=== PATIENT | male | born 2005 | race Caucasian/White ===

== ENCOUNTER 2024-03-09 18:44 | Emergency (ER) | payer BC, SELFPAY ==
[2024-03-09 18:52] VITALS: BP 139/68; PULSE 75; TEMP 37.1; O2SAT 100; BMI 19.2
--- NOTE | 2024-03-09 19:27 | ED_ITS ---
HPI - Male Genitourinary General Chief complaint: Urogenital-Male Stated complaint: GENITAL DISCOMFORT Time Seen by Provider: 03/09/24 19:19 Source: patient and family Mode of arrival: walk-in Limitations: no limitations History of Present Illness HPI Narrative: patient presents complaining of testicle pain on and off since november. First noticed after intercourse. Now will experience pain more often even without intercourse. Now presents complaining of ongoing left testicle pain for the past week. No injury. Was seen at health clinic and mother states he was checked for STD and test were neg. Denies dysuria, hematuria or penile discharge. Does have back pain on and off. Describes it as tightening that has been on and off for past year Related Data Home Medications ?Medication ?Instructions ?Recorded ?Confirmed No Known Home Medications 03/09/24 03/09/24 Allergies Allergy/AdvReac Type Severity Reaction Status Date / Time codeine AdvReac Irritable Verified 03/09/24 18:52 Review of Systems ROS Status of ROS 10 or more systems reviewed and unremark able except as noted in history and below PFSH PFSH Social History Little interest or pleasure in doing things: not at all Feeling down, depressed, or hopeless: not at all Exam Constitutional Vital Signs, click to edit/add: Last Vital Signs Temp 98.7 F 03/09/24 18:52 Pulse 62 03/09/24 19:58 Resp 18 03/09/24 19:58 BP 127/80 03/09/24 20:30 Pulse Ox 97 03/09/24 20:30 O2 Del Method Room Air 03/09/24 18:52 Common normals: no apparent distress, average body habitus, oriented x3, no limitations, healthy appearing, alert and well nourished [facility] Common normals: normocephalic and head/scalp atraumatic Eye Common normals: PERRL, EOMs intact bilaterally and conjunctivae normal Respiratory Common normals: normal respiratory effort, no retractions, no use of accessory muscles and clear to auscultation bilaterally Cardio Common normals: regular rate, regular rhythm, S1 normal heart sound and S2 normal heart sound GI Common normals: Normal to inspection, nondistended, normoactive bowel sounds present, soft to palpation and non-tender Penis: normal penis and uncircumcised Scrotum: testes descended bilaterally Testes: testicular lie normal Other: testes nontender and not enlarged or swollen Extremity Common normals: normal to inspection and full ROM Neuro Common normals: oriented x3, CN's II-XII intact bilaterally, moves all e xtremities and no focal motor deficits Psych Appearance: grossly normal Course Vital Signs Vital signs: Vital Signs Temperature 98.7 F 03/09/24 18:52 Pulse Rate 75 03/09/24 18:52 Respiratory Rate 14 03/09/24 18:52 Blood Pressure 139/68 03/09/24 18:52 Pulse Oximetry 100 03/09/24 18:52 Oxygen Delivery Method Room Air 03/09/24 18:52 Temperature 98.7 F 03/09/24 18:52 Pulse Rate 62 03/09/24 19:58 Respiratory Rate 18 03/09/24 19:58 Blood Pressure 127/80 03/09/24 20:30 Pulse Oximetry 97 03/09/24 20:30 Oxygen Delivery Method Room Air 03/09/24 18:52 MDM - Male Genitourinary MDM Narrative Medical decision making narrative: patient presents complaining of testicle pain on and off since november. Constant discomfort of left testes for past week. No injury. exam of testes normal. Not swollen. No atrophy and nontender. labs including UA unremarkable. Patient and mother informed it is not clear what is causing the pain. No clinical evidence of Torsion or epididymitis. Recommend eval by Urology. Will also have him scheduled for ultrasound 03/11/24 as part of workup Lab Data Labs: Lab Results 03/09/24 03/09/24 Range/Units 19:10 19:50 WBC 9.4 (4.0-11.0) 10^3/uL RBC 4.85 (4.70-6.10) 10^6/uL Hgb 14.6 (14.0-18.0) g/dL Hct 41.9 L (42.0-54.0) % MCV 86.4 (80.0-94.0) fL MCH 30.1 (25.9-34.0) pg MCHC 34.8 (29.9-35.2) g/dL RDW 11.5 (11.0-15.0) % Plt Count 246 (150-450) 10^3/uL MPV 8.9 L (9.5-13.5) fL Neut % (Auto) 61.9 (43.0-75.0) % Lymph % (Auto) 26.4 (20.5-60.0) % [place] % (Auto) 8.2 (1.7-12.0) % Eos % (Auto) 1.6 (0.9-7.0) % Baso % (Auto) 0.5 (0.2-2.0) % Neut # (Auto) 5.8 (1.4-6.5) 10^3/uL Lymph # (Auto) 2.5 (1.2-3.8) 10^3/uL [place] # (Auto) 0.8 (0.3-0.8) 10^3/uL Eos # (Auto) 0.2 (0.0-0.7) 10^3/uL Baso # (Auto) 0.1 (0.0-0.1) 10^3/uL Abs Immat Gran (auto) 0.13 H (0.00-0.03) 10^3/uL Imm/Tot Granulo (auto) 1.4 H (0.0-0.5) % Sodium 141 (136-145) mmol/L Potassium 3.8 (3.5-5.1) mmol/L Chloride 105 (98-107) mmol/L Carbon Dioxide 27.7 (21.0-32.0) mmol/L Anion Gap 12.1 BUN 23.0 H (7.0-18.0) mg/dL Creatinine 1.20 (0.70-1.30) mg/dL Est GFR ( Amer) >60 (>=60 mL/min/1.73m^2) Est GFR (Non-Af Amer) >60 (>=60 mL/min/1.73m^2) BUN/Creatinine Ratio 19.2 Glucose 95 (74-106) mg/dL Calcium 9.2 (8.5-10.1) mg/dL Urine Color Lt. yellow (YELLOW) Urine Clarity Clear (CLEAR) Urine pH 7.0 (5.0-9.0) Ur Specific [place] 1.025 (1.005-1.025) Urine Protein Negative (NEG/TRACE) mg/dL Urine Glucose (UA) Negative (NEGATIVE) mg/dL Urine Ketones Trace A (NEGATIVE) mg/dL Urine Occult Blood Negative (NEGATIVE) Urine Nitrite Negative (NEGATIVE) Urine Bilirubin Negative (NEGATIVE) Urine Urobilinogen 1.0 (0.2-1.0) EU/dL Ur Leukocyte Esterase Negative (NEGATIVE) Discharge Plan Discharge Chief Complaint: Urogenital-Male Clinical Impression: Left testicular pain Patient Disposition: Home, Self-Care Prescriptions / Home Meds: No Action No Known Home Medications Print Language: [place]an Instructions: Testicle Pain (ED) Additional Instructions: return for Ultrasound and contact Dr Lerma [facility] Monday for follow up next week Referrals: TANO GLORIA [Primary Care Provider] - 1 week Discharge Date/Time: 03/09/24 20:55
[2024-03-09 19:35] LABS: Bilirubin Urine NEGATIVE (NEGATIVE); Blood Urine NEGATIVE (NEGATIVE); Clarity Urine CLEAR (CLEAR); Color Urine LT. YELLOW (YELLOW); Glucose Urine UA NEGATIVE (NEGATIVE); Ketones Urine TRACE mg/dL (NEGATIVE); Leukocyte Esterase Urine NEGATIVE (NEGATIVE); Nitrite Urine NEGATIVE (NEGATIVE); Protein Urine NEGATIVE (NEG/TRACE); Specific Gravity Urine 1.025 (1.005-1.025)
[2024-03-09 19:36] LABS: Urine Microscopic Indicated NO
[2024-03-09 19:58] VITALS: BP 129/70; PULSE 62; O2SAT 99
[2024-03-09 20:00] VITALS: BP 129/73; O2SAT 99
[2024-03-09] MEDS: IBUPROFEN 400 MG TABLET 800 MG PO (20:00)
[2024-03-09 20:02] LABS: Basophils Absolute Auto 0.1 10^3/uL (0.0-0.1); Basophils Percent Auto 0.5 % (0.2-2.0); Eosinophils Absolute Auto 0.2 10^3/uL (0.0-0.7); Eosinophils Percent Auto 1.6 % (0.9-7.0); Hematocrit 41.9 % (42.0-54.0); Hemoglobin 14.6 g/dL (14.0-18.0); Immature Granulocytes Abs Auto 0.13 10^3/uL (0.00-0.03); Immature Granulocytes Pct Auto 1.4 % (0.0-0.5); Lymphocytes Absolute Auto 2.5 10^3/uL (1.2-3.8); Lymphocytes Percent Auto 26.4 % (20.5-60.0); Mean Corpuscular HGB Conc 34.8 g/dL (29.9-35.2); Mean Corpuscular Hemoglobin 30.1 pg (25.9-34.0); Mean Corpuscular Volume 86.4 fL (80.0-94.0); Mean Platelet Volume 8.9 fL (9.5-13.5); Monocytes Absolute Auto 0.8 10^3/uL (0.3-0.8); Monocytes Percent Auto 8.2 % (1.7-12.0); Neutrophils Absolute Auto 5.8 10^3/uL (1.4-6.5); Neutrophils Percent Auto 61.9 % (43.0-75.0); Platelet Count 246 10^3/uL (150-450); Red Blood Count 4.85 10^6/uL (4.70-6.10); Red Cell Distribution Width 11.5 % (11.0-15.0); White Blood Count 9.4 10^3/uL (4.0-11.0)
[2024-03-09 20:08] LABS: Anion Gap 12.1; BUN Creatinine Ratio 19.2; Calcium 9.2 mg/dL (8.5-10.1); Carbon Dioxide 27.7 mmol/L (21.0-32.0); Chloride 105 mmol/L (98-107); Estimated GFR (African America >60 (>=60 mL/min/1.73m^2); Estimated GFR (Non-African Ame >60 (>=60 mL/min/1.73m^2); Glucose 95 mg/dL (74-106); Potassium 3.8 mmol/L (3.5-5.1); Sodium 141 mmol/L (136-145)
[2024-03-09 20:10] VITALS: O2SAT 97
--- NOTE | 2024-03-09 20:13 | PC.NURSE ---
patient complains of left testicle pain onset 11/2023, this patient rates his pain at 5/10 and dull ache, patient denies any injury, falls, trauma to cause this pain. denies any pain or discharge during urination. this patient also complains of mid lower back at times
[2024-03-09 20:20] VITALS: O2SAT 98
[2024-03-09 20:30] VITALS: BP 127/80; O2SAT 97
--- NOTE | 2024-03-09 20:54 | PC.NURSE ---
i gave verbal and paper discharge orders along with 1 Rx(ultrasound) to this patient and he voices yes to understanding. at time of discharge this patient shows no signs of distress
== END 2024-03-09 20:55 | disposition home or self-care (01) ==
PROVIDERS: Emergency Provider Internal Medicine; PCP Family Medicine
DX: N50.812 Left testicular pain (principal)
CPT/HCPCS: 36415; 80048; 81003; 85025; 99283

== ENCOUNTER 2024-03-11 16:08 | Outpatient (OUT) | payer BC, SELFPAY ==
--- NOTE | 2024-03-11 16:10 | US_ITS ---
The [address] [address] Patient Name: NUBIA AMATO MRN: [id number] date: 2005 Sex: M Assigned Patient Location: [place] Current Patient Location: [place] Accession/Order Number: [id number] Exam Date: 03/11/2024 16:13 Report Date: 03/13/2024 09:50 At the request of: DELFINA HARMON Procedure: US scrotum EXAMINATION: US scrotum HISTORY: LEFT TESTICLE PAIN for 2 months COMPARISON: No relevant comparison available. TECHNIQUE: High-resolution sonographic imaging of the scrotum and contents was performed. FINDINGS: RIGHT: TESTICLE: Homogeneous echotexture. No visible mass. Color Doppler flow is present. Spectral Doppler demonstrates normal arterial waveform and flow, 6/2 cm/s (PSV/EDV), and normal venous wave flow averaging 1 cm/s. EPIDIDYMIS: Normal size and echogenicity. OTHER: Varicocele. Small hydrocele. LEFT: TESTICLE: Homogeneous echotexture. No visible mass. Color Doppler flow is present. Spectral Doppler demonstrates arterial waveform and flow, 6/2 cm/s (PSV/EDV), and normal venous flow averaging 1 cm/s. EPIDIDYMIS: Normal size and echogenicity. OTHER: Varicocele. US/US scrotum IMPRESSION: 1. Normal appearance of testicles and epididymides. No acute or suspicious findings. 2. Small right hydrocele of uncertain etiology. 3. Small-moderate bilateral varicoceles. No appreciable thrombosis. Electronically authenticated by: SIDRA ORELLANA Date: 03/13/2024 09:50
== END 2024-03-11 16:09 | disposition home or self-care (01) ==
LOC: US 16:08
PROVIDERS: PCP Family Medicine; Visit Provider Internal Medicine
DX: N50.812 Left testicular pain (principal)
CPT/HCPCS: 76870